=== PATIENT | female | born 1935 | race Caucasian/White ===

== ENCOUNTER 2017-04-02 18:03 | Observation (INO) | payer MEDICARE, OTHER ==
[2017-04-02] VITALS (9 sets, daily range): BP systolic 165–212; BP diastolic 72–105; PULSE 61–84; RESP 16–20; TEMP 98–99.1; O2SAT 96–99
[~2017-04-02] VITALS: Ht 165.1 cm; Wt 61.6 kg
[2017-04-02] MEDS ORDERED: ROSU10 PO (18:25)
[2017-04-02] MEDS ORDERED: GLIP5TAB8 PO (18:25)
[2017-04-02] MEDS ORDERED: METOPROLOL (18:25)
[2017-04-02] MEDS ORDERED: METF500T PO (18:25)
[2017-04-02] MEDS ORDERED: ASPI-516 CHEW (18:25)
[2017-04-02] MEDS ORDERED: SERT25TA83 PO (18:25)
[2017-04-02] MEDS ORDERED: TETANUS/DIPHTHERIA TOXOID ADULT 0.5 ML VIAL IM ONE (18:30)
[2017-04-02] MEDS ORDERED: SODIUM CHLORIDE 0.9% FLUSH 10 ML FLUSH IVF PRN ×2 (18:30)
--- NOTE | 2017-04-02 18:43 | PD ---
HPI Chief Complaint: Fall Time Seen by Provider: 18:21 Travel History International Travel<30 days: No Contact w/Intl Traveler<30days: No Traveled to known affect area: No History of Present Illness HPI 81 y/o female presents after she states she was going to the bathroom next thing she knows she was on the ground. She has pain to her right hand and has a cut above her right eye. She states she had this happen to her once before and she did not get evaluated for it. She states she thinks she blacked out. This episode was unwitnessed. She denies any other complaints and history is limited as patient had loss of consciousness during episode. PFSH Past Medical History Hx Anticoagulant Therapy: Yes Cardiovascular Problems: Yes High Cholesterol: Yes Diabetes: Yes Patient Takes Glucophage: Yes Hypertension: Yes Tetanus Vaccination: Unknown Dilation and Curettage (D&C): Yes Past Surgical History Cardiac Surgery: Yes Genitourinary Surgery: Yes Social History Alcohol Use: No Tobacco Use: No Substance Use: No Allergies-Medications (Allergen,Severity, Reaction): Coded Allergies: ciprofloxacin (Verified Allergy, Unknown, 04/02/17) verapamil (Verified Allergy, Unknown, 04/02/17) Reported Meds & Prescriptions Reported Meds & Active Scripts Active Reported Glipizide 5 Mg Tab 5 Mg PO DAILY Take 30 minutes before a meal Metformin (Metformin HCl) 500 Mg Tab 500 Mg PO BIDPC Aspirin 81 Mg Chew 81 Mg CHEW DAILY [Metoprolol] Crestor (Rosuvastatin Calcium) 10 Mg Tab 10 Mg PO DAILY Sertraline (Sertraline HCl) 25 Mg Tab 25 Mg PO DAILY Review of Systems Except as stated in HPI: all other systems reviewed are Neg Physical Exam Narrative GENERAL: Well-nourished, well-developed patient. SKIN: Warm and dry. Large ecchymosis noted to right breast HEAD: Normocephalic and laceration noted supraorbitally on the right EYES: No injection or drainage. ENT: No nasal drainage noted. NECK: Supple, trachea midline. No pain over midline neck CARDIOVASCULAR: Regular rate and rhythm RESPIRATORY: Breath sounds equal bilaterally at apices. No accessory muscle use. GASTROINTESTINAL: Abdomen soft, tender right upper quadrant, nondistended. EXTREMITIES: No edema.Pain with palpation of right hand with ecchymosis, no pain with other joints , neurovascularly intact, no lacerations over, compartments soft. BACK: Nontender without obvious deformity. NEUROLOGICAL: Awake and alert. Motor and sensory grossly within normal limits. Normal speech. Data Data Last Documented VS Vital Signs Date Time Temp Pulse Resp B/P (MAP) Pulse Ox O2 Delivery O2 Flow Rate FiO2 04/02/17 18:58 99.1 69 19 185/79 (114) 99 04/02/17 18:17 Room Air Orders Orders Basic Metabolic Panel (Bmp) (04/02/17 18:25) Complete Blood Count With Diff (04/02/17 18:25) Prothrombin Time / Inr (Pt) (04/02/17 18:25) Act Partial Throm Time (Ptt) (04/02/17 18:25) Type And Screen (04/02/17 18:) Chest, Single Ap (04/02/17 18:25) Pelvis, Ap Only (Routine) (04/02/17 18:25) Ct Brain W/O Iv Contrast(Rout) (04/02/17 18:25) Ct Cerv Spine W/O Contrast (04/02/17 18:25) Ct Abd/Pel W Iv Contrast(Rout) (04/02/17 18:25) Iv Access Insert/Monitor (04/02/17 18:25) Ecg Monitoring (04/02/17 18:25) Oximetry (04/02/17 18:25) Sodium Chloride 0.9% Flush (Ns Flush) (04/02/17 18:30) Wrist, Complete ([id number]) (04/02/17 ) Hand, Complete ([id number]) (04/02/17 ) Tetanus/Diphtheria Tox Adult (Tetanus/Di (04/02/17 18:30) Magnesium (Mg) (04/02/17 18:25) Ckmb (Isoenzyme) Profile (04/02/17 18:25) Troponin I (04/02/17 18:25) Urinalysis - C+S If Indicated (04/02/17 18:25) Sodium Chloride 0.9% Flush (Ns Flush) (04/02/17 18:30) Ct Pulmonary Angiogram (04/02/17 ) Labs Laboratory Tests Test 04/02/17 18:45 White Blood Count 7.2 TH/MM3 Red Blood Count 4.39 MIL/MM3 Hemoglobin 13.1 GM/DL Hematocrit 38.7 % Mean Corpuscular Volume 88.2 FL Mean Corpuscular Hemoglobin 29.7 PG Mean Corpuscular Hemoglobin Concent 33.7 % Red Cell Distribution Width 13.1 % Platelet Count 196 TH/MM3 Mean Platelet Volume 8.8 FL Neutrophils (%) (Auto) 70.8 % Lymphocytes (%) (Auto) 19.8 % Monocytes (%) (Auto) 7.1 % Eosinophils (%) (Auto) 1.7 % Basophils (%) (Auto) 0.6 % Neutrophils # (Auto) 5.1 TH/MM3 Lymphocytes # (Auto) 1.4 TH/MM3 Monocytes # (Auto) 0.5 TH/MM3 Eosinophils # (Auto) 0.1 TH/MM3 Basophils # (Auto) 0.0 TH/MM3 CBC Comment DIFF FINAL Differential Comment Prothrombin Time 10.7 SEC Prothromb Time International Ratio 1.0 RATIO Activated Partial Thromboplast Time 25.1 SEC MDM Medical Decision Making Medical Screen Exam Complete: Yes Emergency Medical Condition: Yes Medical Record Reviewed: Yes (past history confirmed) Differential Diagnosis Fracture, strain, bleeding, syncope Narrative Course Will check blood work, trauma imaging and she will likely need admission for syncope Physician Communication Physician Communication Oncoming physician to follow workup and admit Sandra Alvarado MD Apr 02, 2017 18:43
[2017-04-02 18:55] LABS: AUTOMATED NEUTROPHIL # 5.1 TH/MM3 (1.8-7.7); BASOPHIL % 0.6 % (0.0-2.0); EOSINOPHIL # 0.1 TH/MM3 (0-0.4); EOSINOPHIL % 1.7 % (0.0-4.0); HEMATOCRIT 38.7 % (35.0-46.0); HEMO FLAGS DIFF FINAL; LYMPH % 19.8 % (9.0-44.0); LYMPHOCYTE # 1.4 TH/MM3 (1.0-4.8); MEAN CELL VOLUME 88.2 FL (80.0-100.0); MEAN CORPUSCULAR HEMOGLOBIN 29.7 PG (27.0-34.0); MEAN CORPUSCULAR HGB CONC 33.7 % (32.0-36.0); MONO % 7.1 % (0.0-8.0); NEUT % 70.8 % (16.0-70.0); PLATELET COUNT 196 TH/MM3 (150-450); RED BLOOD COUNT 4.39 MIL/MM3 (4.00-5.30); RED CELL DISTRIBUTION WIDTH 13.1 % (11.6-17.2); WHITE BLOOD COUNT 7.2 TH/MM3 (4.0-11.0)
[2017-04-02 19:07] LABS: APTT (PATIENT) 25.1 SEC (24.3-30.1); PROTHROMBIN TIME - PATIENT 10.7 SEC (9.8-11.6)
[2017-04-02 19:18] LABS: ANION GAP 8 MEQ/L (5-15); BICARBONATE 24.3 MEQ/L (21.0-32.0); BLOOD UREA NITROGEN 19 MG/DL (7-18); CHLORIDE 107 MEQ/L (98-107); GLOMERULAR FILTRATION RATE 53 ML/MIN (>89); MAGNESIUM 1.6 MG/DL (1.5-2.5); POTASSIUM 3.5 MEQ/L (3.5-5.1); SODIUM (NA) 139 MEQ/L (136-145)
[2017-04-02 19:23] LABS: CREATINE KINASE 82 U/L (26-192)
--- NOTE | 2017-04-02 19:23 | PD ---
Physical Exam Date Seen by Provider: Apr 02, 2017 Time Seen by Provider: 19:22 Narrative Accepted in transfer of care from Dr. Alvarado Data Data Last Documented VS Vital Signs Date Time Temp Pulse Resp B/P (MAP) Pulse Ox O2 Delivery O2 Flow Rate FiO2 04/02/17 19:40 70 16 209/91 (130) 98 Room Air 04/02/17 18:58 99.1 Orders Orders Basic Metabolic Panel (Bmp) (04/02/17 18:25) Complete Blood Count With Diff (04/02/17 18:25) Prothrombin Time / Inr (Pt) (04/02/17 18:25) Act Partial Throm Time (Ptt) (04/02/17 18:25) Type And Screen (04/02/17 18:25) Chest, Single Ap (04/02/17 18:25) Pelvis, Ap Only (Routine) (04/02/17 18:25) Ct Brain W/O Iv Contrast(Rout) (04/02/17 18:25) Ct Cerv Spine W/O Contrast (04/02/17 18:25) Ct Abd/Pel W Iv Contrast(Rout) (04/02/17 18:25) Iv Access Insert/Monitor (04/02/17 18:25) Ecg Monitoring (04/02/17 18:25) Oximetry (04/02/17 18:25) Sodium Chloride 0.9% Flush (Ns Flush) (04/02/17 18:30) Wrist, Complete (Pon9uhi) (04/02/17 ) Hand, Complete (Boj9rdn) (04/02/17 ) Tetanus/Diphtheria Tox Adult (Tetanus/Di (04/02/17 18:30) Magnesium (Mg) (04/02/17 18:25) Ckmb (Isoenzyme) Profile (04/02/17 18:25) Troponin I (04/02/17 18:25) Urinalysis - C+S If Indicated (04/02/17 18:25) Sodium Chloride 0.9% Flush (Ns Flush) (04/02/17 18:30) Ct Pulmonary Angiogram (04/02/17 ) Ct Facial Bones W/O Iv Cont (04/02/17 ) Iohexol 350 Inj (Omnipaque 350 Inj) (04/02/17 20:26) Splint Or Brace Apply/Monitor (04/02/17 21:57) Admit Order (Ed Use Only) (04/02/17 ) Staff Command And Control Officer / Telemetry ERIK.[id number] (04/02/17 22:02) Diet 1999 Ada Cons Carb (04/03/17 Breakfast) Activity Oob With Assistance (04/02/17 22:02) Notify Dr: Other (04/02/17 22:02) Labs Laboratory Tests Test 04/02/17 18:45 04/02/17 19:42 White Blood Count 7.2 TH/MM3 Red Blood Count 4.39 MIL/MM3 Hemoglobin 13.1 GM/DL Hematocrit 38.7 % Mean Corpuscular Volume 88.2 FL Mean Corpuscular Hemoglobin 29.7 PG Mean Corpuscular Hemoglobin Concent 33.7 % Red Cell Distribution Width 13.1 % Platelet Count 196 TH/MM3 Mean Platelet Volume 8.8 FL Neutrophils (%) (Auto) 70.8 % Lymphocytes (%) (Auto) 19.8 % Monocytes (%) (Auto) 7.1 % Eosinophils (%) (Auto) 1.7 % Basophils (%) (Auto) 0.6 % Neutrophils # (Auto) 5.1 TH/MM3 Lymphocytes # (Auto) 1.4 TH/MM3 Monocytes # (Auto) 0.5 TH/MM3 Eosinophils # (Auto) 0.1 TH/MM3 Basophils # (Auto) 0.0 TH/MM3 CBC Comment DIFF FINAL Differential Comment Prothrombin Time 10.7 SEC Prothromb Time International Ratio 1.0 RATIO Activated Partial Thromboplast Time 25.1 SEC Blood Urea Nitrogen 19 MG/DL Creatinine 1.00 MG/DL Random Glucose 213 MG/DL Calcium Level 8.6 MG/DL Magnesium Level 1.6 MG/DL Sodium Level 139 MEQ/L Potassium Level 3.5 MEQ/L Chloride Level 107 MEQ/L Carbon Dioxide Level 24.3 MEQ/L Anion Gap 8 MEQ/L Estimat Glomerular Filtration Rate 53 ML/MIN Total Creatine Kinase 82 U/L Troponin I LESS THAN 0.02 NG/ML Urine Color LIGHT-YELLOW Urine Turbidity CLEAR Urine pH 6.5 Urine Specific [place] 1.009 Urine Protein NEG mg/dL Urine Glucose (UA) 150 mg/dL Urine Ketones NEG mg/dL Urine Occult Blood NEG Urine Nitrite NEG Urine Bilirubin NEG Urine Urobilinogen LESS THAN 2.0 MG/DL Urine Leukocyte Esterase SMALL Urine RBC 1 /hpf Urine WBC 6 /hpf Urine Squamous Epithelial Cells 1 /hpf Urine Bacteria RARE /hpf Microscopic Urinalysis Comment CULT NOT INDICATED MDM Medical Record Reviewed: Yes Supervised Visit with RYANNE: No Interpretation(s) Last Impressions Pelvis X-Ray 04/02/171824 Signed Impressions: Service Date/Time: March 19:00 - CONCLUSION: Normal examination for a patient of this age. Lawson Michael MD Head CT 04/02/171824 Signed Impressions: Service Date/Time: March 20:10 - CONCLUSION: 1. Right periorbital soft tissue swelling. No acute intracranial abnormalities. Lawson Michael MD Chest X-Ray 04/02/171824 Signed Impressions: Service Date/Time: March 18:57 - CONCLUSION: 1. No active disease. No effusion or pneumothorax. Lawson Michael MD Cervical Spine CT 04/02/171824 Signed Impressions: Service Date/Time: March 20:13 - CONCLUSION: 1. No acute fracture. Moderate to severe degenerative disc disease in the lower cervical spine. Lawson Michael MD Abdomen/Pelvis CT 04/02/171824 Signed Impressions: Service Date/Time: March 20:18 - CONCLUSION: Negative for acute traumatic injury within the abdomen or pelvis. Mild smooth thickening of the bladder wall on the right side of unknown etiology. Lawson Michael MD Wrist X-Ray 04/02/17 Signed Impressions: Service Date/Time: March 19:03 - CONCLUSION: 1. No acute fracture. Moderate osteoarthritis. Lawson Michael MD Maxillofacial CT 04/02/17 Signed Impressions: Service Date/Time: March 20:10 - CONCLUSION: 1. Right periorbital soft tissue swelling. Globes intact. Lawson Michael MD Hand X-Ray 04/02/17 Signed Impressions: Service Date/Time: March 19:02 - CONCLUSION: 1. Fracture of proximal phalanx right fifth finger. No dislocation. 2. Diffuse osteopenia. Moderate osteoarthritis. Lawson Michael MD CT Angiography 11/23/17 0000 Signed Impressions: Service Date/Time: March 20:18 - CONCLUSION: 1. Minimal basilar atelectasis in the lungs. No effusion or pneumothorax. Negative for pulmonary embolus. Lawson Michael MD CBC & BMP Diagram 04/02/17 18:45 Calcium Level 8.6, Magnesium Level 1.6 Vital Signs Date Time Temp Pulse Resp B/P (MAP) Pulse Ox O2 Delivery O2 Flow Rate FiO2 04/02/17 19:40 70 16 209/91 (130) 98 Room Air 04/02/17 19:38 63 16 191/105 (133) 98 Room Air 04/02/17 18:58 99.1 69 19 185/79 (114) 99 04/02/17 18:17 75 20 99 Room Air 04/02/17 18:17 99.1 75 20 185/79 (114) 99 Room Air 04/02/17 18:11 99.1 84 20 185/79 (114) 99 04/02/17 18:07 98.1 77 18 212/95 (134) 98 Room Air Differential Diagnosis Accepted in transfer of care from Dr. Alvarado; please refer to her dictation Narrative Course Accepted in transfer of care from Dr. Alvarado; follow-up of pending CT brain noncontrast CTA pulmonary angiogram and CT abdomen and pelvis as well as follow- up repair of right supraorbital laceration with plan to admit due to syncopal episode today and report of syncopal episode a few weeks ago while in [place] without workup at that time. Imaging studies resulted with no acute abnormality except for right hand x-ray shows a proximal nondisplaced fracture of the fifth digit; ulnar gutter splint applied due to strained wrist as well; 1.5 cm laceration overlying the right eyebrow is closed by nurse practitioner. Soft tissue swelling is noted of the upper and lower right eyelids but no subconjunctival hemorrhage pupil round reactive to light and no visual disturbance of the right eye according to the patient. Patient is aware plan for observation admission for syncope. Physician Communication Physician Communication discussed with Dr Gonzalez --OBS Diagnosis Primary Impression: Syncope Qualified Codes: R55 - Syncope and collapse Additional Impression: Finger fracture, right Qualified Codes: S62.646A - Nondisplaced fracture of proximal phalanx of right little finger, initial encounter for closed fracture Humaira Mosqueda MD Apr 02, 2017 19:23
--- NOTE | 2017-04-02 19:26 | RADRPT ---
EXAM DATE/TIME: 04/02/2017 19:00 [facility] COMPARISON: No previous studies available for comparison. INDICATIONS : Trauma/ Fall MEDICAL HISTORY : None. SURGICAL HISTORY : None. ENCOUNTER: Initial ACUITY: 1 day PAIN SCORE: 2/10 LOCATION: pelvis FINDINGS: A single frontal view of the pelvis demonstrates no evidence of fracture. The bony pelvic ring is in tact. Bony mineralization is normal. The soft tissues are intact. CONCLUSION: Normal examination for a patient of this age. Lawson Michael MD on April 02, 2017 at 19:25 Board Certified Radiologist. This report was verified electronically.
--- NOTE | 2017-04-02 19:26 | RADRPT ---
EXAM DATE/TIME: 04/02/2017 18:57 [facility] COMPARISON: No previous studies available for comparison. INDICATIONS : Trauma/ Fall MEDICAL HISTORY : None. SURGICAL HISTORY : None. ENCOUNTER: Initial ACUITY: 1 day PAIN SCORE: 0/10 LOCATION: Bilateral chest FINDINGS: A single view of the chest demonstrates the lungs to be symmetrically aerated without evidence of mas s, infiltrate or effusion. The cardiomediastinal contours are unremarkable. Osseous structures are intact. CONCLUSION: 1. No active disease. No effusion or pneumothorax. Lawson Michael MD on April 02, 2017 at 19:23 Board Certified Radiologist. This report was verified electronically.
--- NOTE | 2017-04-02 19:59 | RADRPT ---
EXAM DATE/TIME: 04/02/2017 19:02 [facility] COMPARISON: No previous studies available for comparison. INDICATIONS : Trauma/Fall MEDICAL HISTORY : None. SURGICAL HISTORY : None. ENCOUNTER: Initial ACUITY: 1 day PAIN SCORE: 2/10 LOCATION: Right Hand FINDINGS: There is an intra-articular fracture through the proximal portion proximal phalanx right fifth finger . No dislocation. Bones are osteopenic. Moderate osteoarthritis throughout the right wrist and hand. CONCLUSION: 1. Fracture of proximal phalanx right fifth finger. No dislocation. 2. Diffuse osteopenia. Moderate osteoarthritis. Lawson Michael MD on April 02, 2017 at 19:56 Board Certified Radiologist. This report was verified electronically.
--- NOTE | 2017-04-02 20:00 | RADRPT ---
EXAM DATE/TIME: 04/02/2017 19:03 [facility] COMPARISON: No previous studies available for comparison. INDICATIONS : Trauma/ Fall MEDICAL HISTORY : None. SURGICAL HISTORY : None. ENCOUNTER: Initial ACUITY: 1 day PAIN SCORE: 2/10 LOCATION: Right wrist FINDINGS: Three view examination of the right wrist demonstrates no soft tissue swelling, dislocation, or fract ure. The carpal bones are in normal alignment. Moderate osteoarthritis. Bony mineralization is caleb l. CONCLUSION: 1. No acute fracture. Moderate osteoarthritis. Lawson Michael MD on April 02, 2017 at 19:58 Board Certified Radiologist. This report was verified electronically.
[2017-04-02 20:01] LABS: BACTERIA, URINE RARE /hpf; BLOOD, URINE NEG (NEG); COMMENT (UR) CULT NOT INDICATED; CULTURE IF INDICATED CULT NOT INDICATED; GLUCOSE,URINE 150 mg/dL (NEG); KETONE, URINE NEG (NEG); NITRITE,URINE NEG (NEG); PH, URINE 6.5 (5.0-8.5); SQUAMOUS EPITHELIAL CELL URINE 1 /hpf (0-5); URINE COLOR LIGHT-YELLOW (YELLW/STRAW)
[2017-04-02] MEDS ORDERED: IOHEXOL 350 MG/ML 10 ML VIAL (for RAD DIAG) IVCONTRAST ONE (20:26)
--- NOTE | 2017-04-02 20:34 | RADRPT ---
EXAM DATE/TIME: 04/02/2017 20:10 [facility] COMPARISON: No previous studies available for comparison. INDICATIONS : Trauma; fall. RADIATION DOSE: 56.35 CTDIvol (mGy) MEDICAL HISTORY : Hypertension. SURGICAL HISTORY : None. ENCOUNTER: Initial ACUITY: 1 day PAIN SCALE: 5/10 LOCATION: cranial TECHNIQUE: Multiple contiguous axial images were obtained of the head. Using automated exposure control and adj ustment of the mA and/or kV according to patient size, radiation dose was kept as low as reasonably a chievable to obtain optimal diagnostic quality images. DICOM format image data is available electro nically for review and comparison. FINDINGS: No acute intracranial hemorrhage, mass or shift. No hydrocephalus. There is right periorbital soft ti ssue swelling. Globes intact. No recent infarct. CONCLUSION: 1. Right periorbital soft tissue swelling. No acute intracranial abnormalities. Lawson Michael MD on April 02, 2017 at 20:31 Board Certified Radiologist. This report was verified electronically.
--- NOTE | 2017-04-02 20:36 | RADRPT ---
EXAM DATE/TIME: 04/02/2017 20:13 [facility] COMPARISON: No previous studies available for comparison. INDICATIONS : Trauma; fall. RADIATION DOSE: 26.35 CTDIvol (mGy) MEDICAL HISTORY : Hypertension. SURGICAL HISTORY : None. ENCOUNTER: Initial ACUITY: 1 day PAIN SCALE: 5/10 LOCATION: Bilateral neck TECHNIQUE: Volumetric scanning of the cervical spine was performed. Multiplanar reconstructions in the sagittal, coronal and oblique axial planes were performed. Using automated exposure control and adjustment o f the mA and/or kV according to patient size, radiation dose was kept as low as reasonably achievable to obtain optimal diagnostic quality images. DICOM format image data is available electronically f or review and comparison. FINDINGS: There is moderate severe degenerative disc disease in lower cervical spine. No acute fracture or spon dylolisthesis. No significant central canal stenosis. No prevertebral soft tissue swelling. CONCLUSION: 1. No acute fracture. Moderate to severe degenerative disc disease in the lower cervical spine. Lawson Michael MD on April 02, 2017 at 20:33 Board Certified Radiologist. This report was verified electronically.
--- NOTE | 2017-04-02 20:48 | RADRPT ---
EXAM DATE/TIME: 04/02/2017 20:18 [facility] COMPARISON: No previous studies available for comparison. INDICATIONS : Trauma; fall. IV CONTRAST: 100 cc Omnipaque 350 (iohexol) IV ; Cumulative dose for multiple exams. ORAL CONTRAST: No oral contrast ingested. RADIATION DOSE: 9.96 CTDIvol (mGy) ; Combined studies - Thorax/Abdomen/Pelvis MEDICAL HISTORY : Hypertension. SURGICAL HISTORY : None. ENCOUNTER: Initial ACUITY: 1 day PAIN SCALE: 5/10 LOCATION: Bilateral chest TECHNIQUE: Volumetric scanning of the abdomen and pelvis was performed. Using automated exposure control and ad justment of the mA and/or kV according to patient size, radiation dose was kept as low as reasonably achievable to obtain optimal diagnostic quality images. DICOM format image data is available electro nically for review and comparison. FINDINGS: Lung bases demonstrate minimal scarring. Mild fatty liver. Spleen, adrenals, kidneys and pancreas unr emarkable. No calcified gallstones or biliary ductal dilatation. No free fluid. No bowel obstruction. No adenopathy. Mild nonspecific thickening of the bladder wall o n the right side. CONCLUSION: Negative for acute traumatic injury within the abdomen or pelvis. Mild smooth thickening of the bladd er wall on the right side of unknown etiology. Lawson Michael MD on April 02, 2017 at 20:43 Board Certified Radiologist. This report was verified electronically.
--- NOTE | 2017-04-02 20:53 | RADRPT ---
EXAM DATE/TIME: 04/02/2017 20:18 [facility] COMPARISON: No previous studies available for comparison. INDICATIONS : Trauma; fall. IV CONTRAST: 100 cc Omnipaque 350 (iohexol) IV ; Cumulative dose for multiple exams. RADIATION DOSE: 5.1 CTDIvol (mGy) MEDICAL HISTORY : Hypertension. SURGICAL HISTORY : None. ENCOUNTER: Initial ACUITY: 1 day PAIN SCALE: 5/10 LOCATION: Bilateral abdomen TECHNIQUE: Volumetric scanning of the chest was performed using a pulmonary embolism protocol MIP images were re constructed. Using automated exposure control and adjustment of the mA and/or kV according to patien t size, radiation dose was kept as low as reasonably achievable to obtain optimal diagnostic quality images. DICOM format image data is available electronically for review and comparison. Follow-up recommendations for detected pulmonary nodules are based at a minimum on nodule size and pa tient risk factors according to Fleischner Society Guidelines. FINDINGS: PULMONARY ARTERIES: No filling defects are seen in the pulmonary arteries through the segmental level. LUNGS: There is no consolidation or pneumothorax . No concerning pulmonary nodule is visualized. Minimal ba silar atelectasis. PLEURAE: There is no pleural thickening or pleural effusion. MEDIASTINUM: There is good visualization of the great vessels of the middle mediastinum. No evidence of mediastin al or hilar adenopathy/mass. MUSCULOSKELETAL: Within normal limits for patient age. MISCELLANEOUS: The visualized upper abdominal organs demonstrate no acute abnormality. CONCLUSION: 1. Minimal basilar atelectasis in the lungs. No effusion or pneumothorax. Negative for pulmonary embo lon. Lawson Michael MD on April 02, 2017 at 20:46 Board Certified Radiologist. This report was verified electronically.
--- NOTE | 2017-04-02 20:56 | RADRPT ---
EXAM DATE/TIME: 04/02/2017 20:10 [facility] COMPARISON: No previous studies available for comparison. INDICATIONS : Trauma; fall. RADIATION DOSE: 27.85 CTDIvol (mGy) MEDICAL HISTORY : Hypertension. SURGICAL HISTORY : None. ENCOUNTER: Initial ACUITY: 1 day PAIN SCORE: 5/10 LOCATION: cranial TECHNIQUE: Volumetric scanning of the facial bones was performed. Using automated exposure control and adjustme nt of the mA and/or kV according to patient size, radiation dose was kept as low as reasonably achiev able to obtain optimal diagnostic quality images. DICOM format image data is available electronicall y for review and comparison. FINDINGS: There is right periorbital soft tissue swelling. No acute bony abnormality. Visualized paranasal sinu ses are clear. Globes are intact. CONCLUSION: 1. Right periorbital soft tissue swelling. Globes intact. Lawson Michael MD on April 02, 2017 at 20:51 Board Certified Radiologist. This report was verified electronically.
--- NOTE | 2017-04-02 22:16 | PD ---
Physical Exam Date Seen by Provider: Apr 02, 2017 Time Seen by Provider: 22:15 Narrative For full history and physical examination please see previous provider's note. I was asked a pair laceration to patient's right eyebrow. Data Data Last Documented VS Vital Signs Date Time Temp Pulse Resp B/P (MAP) Pulse Ox O2 Delivery O2 Flow Rate FiO2 04/02/17 19:40 70 16 209/91 (130) 98 Room Air 04/02/17 18:58 99.1 Orders Orders Basic Metabolic Panel (Bmp) (04/02/17 18:25) Complete Blood Count With Diff (04/02/17 18:25) Prothrombin Time / Inr (Pt) (04/02/17 18:25) Act Partial Throm Time (Ptt) (04/02/17 18:25) Type And Screen (04/02/17 18:25) Chest, Single Ap (04/02/17 18:25) Pelvis, Ap Only (Routine) (04/02/17 18:25) Ct Brain W/O Iv Contrast(Rout) (04/02/17 18:25) Ct Cerv Spine W/O Contrast (04/02/17 18:25) Ct Abd/Pel W Iv Contrast(Rout) (04/02/17 18:25) Iv Access Insert/Monitor (04/02/17 18:25) Ecg Monitoring (04/02/17 18:25) Oximetry (04/02/17 18:25) Sodium Chloride 0.9% Flush (Ns Flush) (04/02/17 18:30) Wrist, Complete ([id number]) (04/02/17 ) Hand, Complete ([id number]) (04/02/17 ) Tetanus/Diphtheria Tox Adult (Tetanus/Di (04/02/17 18:30) Magnesium (Mg) (04/02/17 18:25) Ckmb (Isoenzyme) Profile (04/02/17 18:25) Troponin I (04/02/17 18:25) Urinalysis - C+S If Indicated (04/02/17 18:25) Sodium Chloride 0.9% Flush (Ns Flush) (04/02/17 18:30) Ct Pulmonary Angiogram (04/02/17 ) Ct Facial Bones W/O Iv Cont (04/02/17 ) Iohexol 350 Inj (Omnipaque 350 Inj) (04/02/17 20:26) Splint Or Brace Apply/Monitor (04/02/17 21:57) Admit Order (Ed Use Only) (04/02/17 ) Medical Stenographer / Telemetry [id number] (04/02/17 22:02) Diet 1999 Ada Cons Carb (04/03/17 Breakfast) Activity Oob With Assistance (04/02/17 22:02) Notify Dr: Other (04/02/17 22:02) Labs Laboratory Tests Test 04/02/17 18:45 04/02/17 19:42 White Blood Count 7.2 TH/MM3 Red Blood Count 4.39 MIL/MM3 Hemoglobin 13.1 GM/DL Hematocrit 38.7 % Mean Corpuscular Volume 88.2 FL Mean Corpuscular Hemoglobin 29.7 PG Mean Corpuscular Hemoglobin Concent 33.7 % Red Cell Distribution Width 13.1 % Platelet Count 196 TH/MM3 Mean Platelet Volume 8.8 FL Neutrophils (%) (Auto) 70.8 % Lymphocytes (%) (Auto) 19.8 % Monocytes (%) (Auto) 7.1 % Eosinophils (%) (Auto) 1.7 % Basophils (%) (Auto) 0.6 % Neutrophils # (Auto) 5.1 TH/MM3 Lymphocytes # (Auto) 1.4 TH/MM3 Monocytes # (Auto) 0.5 TH/MM3 Eosinophils # (Auto) 0.1 TH/MM3 Basophils # (Auto) 0.0 TH/MM3 CBC Comment DIFF FINAL Differential Comment Prothrombin Time 10.7 SEC Prothromb Time International Ratio 1.0 RATIO Activated Partial Thromboplast Time 25.1 SEC Blood Urea Nitrogen 19 MG/DL Creatinine 1.00 MG/DL Random Glucose 213 MG/DL Calcium Level 8.6 MG/DL Magnesium Level 1.6 MG/DL Sodium Level 139 MEQ/L Potassium Level 3.5 MEQ/L Chloride Level 107 MEQ/L Carbon Dioxide Level 24.3 MEQ/L Anion Gap 8 MEQ/L Estimat Glomerular Filtration Rate 53 ML/MIN Total Creatine Kinase 82 U/L Troponin I LESS THAN 0.02 NG/ML Urine Color LIGHT-YELLOW Urine Turbidity CLEAR Urine pH 6.5 Urine Specific [place] 1.009 Urine Protein NEG mg/dL Urine Glucose (UA) 150 mg/dL Urine Ketones NEG mg/dL Urine Occult Blood NEG Urine Nitrite NEG Urine Bilirubin NEG Urine Urobilinogen LESS THAN 2.0 MG/DL Urine Leukocyte Esterase SMALL Urine RBC 1 /hpf Urine WBC 6 /hpf Urine Squamous Epithelial Cells 1 /hpf Urine Bacteria RARE /hpf Microscopic Urinalysis Comment CULT NOT INDICATED MDM Supervised Visit with RYANNE: Yes Procedures Procedure Narrative LACERATION LOCATION: Right eyebrow LENGTH: 1.5cm NUMBER OF STITCHES/SANJIV: 6 stitches REPAIR: The area of the laceration was prepped with Betadine and sterilely draped. The laceration was infiltrated with 1% lidocaine with epi. The wound was copiously irrigated and explored without evidence of foreign body, tendon injury or neurovascular injury. The wound was closed using 5-0 Prolene. This was a 1 layer repair. A sterile dressing was applied. The patient was advised to keep the dressing clean and dry. Patient tolerated the procedure well. Diagnosis Primary Impression: Syncope Qualified Codes: R55 - Syncope and collapse Additional Impression: Finger fracture, right Qualified Codes: S62.646A - Nondisplaced fracture of proximal phalanx of right little finger, initial encounter for closed fracture Eryn Escobedo [facility] Apr 02, 2017 22:16
[2017-04-02] MEDS ORDERED: OMEP40CA2 PO (22:38)
[2017-04-02] MEDS ORDERED: AMIO0.1T PO (22:38)
[2017-04-02] MEDS ORDERED: VITA1000 PO (22:38)
[2017-04-02] MEDS ORDERED: PROP20TA3 PO (22:38)
[2017-04-02] MEDS ORDERED: ARMO60TA PO (22:38)
[2017-04-02] MEDS ORDERED: FENO2.5C PO (22:38)
[2017-04-02] MEDS ORDERED: SODIUM CHLORIDE 0.9% FLUSH 10 ML FLUSH IV FLUSH PRN (23:30)
--- NOTE | 2017-04-02 23:43 | HHI.HP ---
[facility] Primary Care Physician Unknown Admission Diagnosis syncope, minor CHI, right fifth finger fracture Diagnoses: Travel History International Travel<30 Days: No Contact w/Intl Traveler <30 Da: No Traveled to Known Affected Are: No History of Present Illness 81-year-old female with past medical history significant for hypertension, hyperlipidemia, hypothyroidism and type 2 diabetes mellitus presents after suffering a syncopal episode. The patient states she was using a public restroom and upon standing lost consciousness and fell. She does not remember the fall. She remembers waking up on the bathroom floor with a laceration to her forehead. The patient had a similar episode approximately one month ago where she fainted after getting off the bus. She lives in [place] and has not had any workup done for her previous syncopal episode. The patient has significant ecchymosis surrounding her right eye and a 2 cm laceration status post repair above her right eyebrow. Imaging done within the emergency department was normal with the exception of a fracture of the proximal phalanx right fifth finger without dislocation. Head CT significant for periorbital soft tissue swelling with no acute intracranial abnormalities. Patient denies any chest pain/shortness of breath. She denies abdominal pain/nausea/vomiting. Review of Systems Denies fever or chills Denies blurry vision, otorrhea, rhinorrhea Denies sore throat and cough No chest pain, palpitations, shortness of breath No abdominal pain Denies constipation/diarrhea/nausea/vomiting Denies muscle pain/weakness No rashes Past Family Social History Past Medical History History of atrial fibrillation status post ablation in 2009 Type 2 diabetes mellitus Hypertension Hyperlipidemia Hypothyroidism Past Surgical History Right-sided lithotripsy, left stone retrieval Tonsillectomy Allergies: Coded Allergies: ciprofloxacin (Verified Allergy, Unknown, 04/02/17) verapamil (Verified Allergy, Unknown, 04/02/17) Family History Brother and sister with diabetes mellitus. Mother from pancreatic cancer. Father from bladder cancer. Social History Denies alcohol, tobacco and illicit drugs. Physical Exam Vital Signs Vital Signs Date Time Temp Pulse Resp B/P (MAP) Pulse Ox O2 Delivery O2 Flow Rate FiO2 11/23/17 23:04 64 16 165/74 (104) 96 Room Air 04/02/17 22:56 64 16 170/78 (108) 96 Room Air 04/02/17 19:40 70 16 209/91 (130) 98 Room Air 04/02/17 19:38 63 16 191/105 (133) 98 Room Air 04/02/17 18:58 99.1 69 19 185/79 (114) 99 04/02/17 18:17 75 20 99 Room Air 04/02/17 18:17 99.1 75 20 185/79 (114) 99 Room Air 04/02/17 18:11 99.1 84 20 185/79 (114) 99 04/02/17 18:07 98.1 77 18 212/95 (134) 98 Room Air Physical Exam GENERAL: Elderly female lying in bed SKIN: Right eye with significant soft tissue swelling and surrounding ecchymoses. 2 cm repaired laceration above the right eyebrow. HEAD: . Normocephalic. No temporal or scalp tenderness. EYES: Pupils equal round and reactive. Extraocular motions intact. No scleral icterus. No injection or drainage. ENT: Nose without bleeding, purulent drainage or septal hematoma. Throat without erythema, tonsillar hypertrophy or exudate. Uvula midline. Airway patent. NECK: Trachea midline. No JVD or lymphadenopathy. Supple, nontender, no meningeal signs. CARDIOVASCULAR: Regular rate and rhythm without murmurs, gallops, or rubs. RESPIRATORY: Clear to auscultation. Breath sounds equal bilaterally. No wheezes , rales, or rhonchi. GASTROINTESTINAL: Abdomen soft, non-tender, nondistended. No hepato-splenomegaly , or palpable masses. No guarding. MUSCULOSKELETAL: Extremities without clubbing, cyanosis, or edema. No joint tenderness, effusion, or edema noted. No calf tenderness. Negative Homans sign bilaterally. NEUROLOGICAL: Awake and alert. Cranial nerves II through XII intact. Motor and sensory grossly within normal limits. Normal speech. Laboratory Laboratory Tests Test 04/02/17 18:45 04/02/17 19:42 White Blood Count 7.2 Red Blood Count 4.39 Hemoglobin 13.1 Hematocrit 38.7 Mean Corpuscular Volume 88.2 Mean Corpuscular Hemoglobin 29.7 Mean Corpuscular Hemoglobin Concent 33.7 Red Cell Distribution Width 13.1 Platelet Count 196 Mean Platelet Volume 8.8 Neutrophils (%) (Auto) 70.8 Lymphocytes (%) (Auto) 19.8 Monocytes (%) (Auto) 7.1 Eosinophils (%) (Auto) 1.7 Basophils (%) (Auto) 0.6 Neutrophils # (Auto) 5.1 Lymphocytes # (Auto) 1.4 Monocytes # (Auto) 0.5 Eosinophils # (Auto) 0.1 Basophils # (Auto) 0.0 CBC Comment DIFF FINAL Differential Comment Prothrombin Time 10.7 Prothromb Time International Ratio 1.0 Activated Partial Thromboplast Time 25.1 Blood Urea Nitrogen 19 Creatinine 1.00 Random Glucose 213 Calcium Level 8.6 Magnesium Level 1.6 Sodium Level 139 Potassium Level 3.5 Chloride Level 107 Carbon Dioxide Level 24.3 Anion Gap 8 Estimat Glomerular Filtration Rate 53 Total Creatine Kinase 82 Troponin I LESS THAN 0.02 Urine Color LIGHT-YELLOW Urine Turbidity CLEAR Urine pH 6.5 Urine Specific [place] 1.009 Urine Protein NEG Urine Glucose (UA) 150 Urine Ketones NEG Urine Occult Blood NEG Urine Nitrite NEG Urine Bilirubin NEG Urine Urobilinogen LESS THAN 2.0 Urine Leukocyte Esterase SMALL Urine RBC 1 Urine WBC 6 Urine Squamous Epithelial Cells 1 Urine Bacteria RARE Microscopic Urinalysis Comment CULT NOT INDICATED Result Diagram: 04/02/17184404/02/171844 Caprini VTE Risk Assessment Caprini VTE Risk Assessment: Mod/High Risk (score >= 2) Caprini Risk Assessment Model Point Value = 1 Point Value = 2 Point Value = 3 Point Value = 5 Age 41-60 Minor surgery BMI > 25 kg/m2 Swollen legs Varicose veins or History of unexplained or recurrent spontaneous Oral contraceptives or hormone replacement Sepsis (< 1 month) Serious lung disease, including pneumonia (< 1 month) Abnormal pulmonary function Acute myocardial infarction Congestive heart failure (< 1 month) History of inflammatory bowel disease Medical patient at bed rest Age 61-74 Arthroscopic surgery Major open surgery (> 45 min) Laparoscopic surgery (> 45 min) Malignancy Confined to bed (> 72 hours) Immobilizing plaster cast Central venous access Age >= 75 History of VTE Family history of VTE Factor V Leiden Prothrombin [id number] Lupus anticoagulant Anticardiolipin antibodies Elevated serum homocysteine Heparin-induced thrombocytopenia Other congenital or acquired thrombophilia Stroke (< 1 month) Elective arthroplasty Hip, pelvis, or leg fracture Acute spinal cord injury (< 1 month) Prophylaxis Regimen Total Risk Factor Score Risk Level Prophylaxis Regimen 0-1 Low Early ambulation 2 Moderate Order ONE of the following: *Sequential Compression Device (SCD) *Heparin 5000 units SQ BID 3-4 Higher Order ONE of the following medications: *Heparin 5000 units SQ TID *Enoxaparin/Lovenox 40 mg SQ daily (WT < 150 kg, CrCl > 30 mL/min) *Enoxaparin/Lovenox 30 mg SQ daily (WT < 150 kg, CrCl > 10-29 mL/min) *Enoxaparin/Lovenox 30 mg SQ BID (WT < 150 kg, CrCl > 30 mL/min) AND/OR *Sequential Compression Device (SCD) 5 or more Highest Order ONE of the following medications: *Heparin 5000 units SQ TID (Preferred with Epidurals) *Enoxaparin/Lovenox 40 mg SQ daily (WT < 150 kg, CrCl > 30 mL/min) *Enoxaparin/Lovenox 30 mg SQ daily (WT < 150 kg, CrCl > 10-29 mL/min) *Enoxaparin/Lovenox 30 mg SQ BID (WT < 150 kg, CrCl > 30 mL/min) AND *Sequential Compression Device (SCD) Assessment and Plan Assessment and Plan 81-year-old female with past medical history significant for hypertension, hyperlipidemia, type 2 diabetes mellitus and hypothyroidism presents following her second syncopal event in 1 month. 1. Syncope Workup pending including echo, carotid ultrasound, ACS rule out If negative, anticipate discharge tomorrow with close follow-up with PCP 2. Diabetes mellitus Holding home metformin SSI 3. Hypertension/hyperlipidemia/hypothyroidism Continue home medications TSH pending [facility] Heart healthy diet Electrolytes: monitor and replete prn Heparin Patricia Gonzalez MD Apr 02, 2017 23:43
[2017-04-03] VITALS (9 sets, daily range): BP systolic 137–192; BP diastolic 64–82; PULSE 60–77; RESP 16–20; TEMP 96.2–99; O2SAT 94–98
[2017-04-03] MEDS ORDERED: MORPHINE SULFATE 4 MG/ML INJ IV PUSH PRN (00:45)
[2017-04-03] MEDS ORDERED: ACETAMINOPHEN 325 MG TAB PO PRN (00:45)
[2017-04-03] MEDS: HEPARIN SODIUM - SQ 10,000 UNITS/ML VIAL SQ SCH ×3 (01:14→22:51)
[2017-04-03 02:56] LABS: AUTOMATED NEUTROPHIL # 5.1 TH/MM3 (1.8-7.7); BASOPHIL % 0.6 % (0.0-2.0); EOSINOPHIL # 0.1 TH/MM3 (0-0.4); EOSINOPHIL % 1.7 % (0.0-4.0); HEMATOCRIT 35.8 % (35.0-46.0); HEMO FLAGS DIFF FINAL; LYMPH % 24.4 % (9.0-44.0); LYMPHOCYTE # 1.9 TH/MM3 (1.0-4.8); MEAN CELL VOLUME 87.2 FL (80.0-100.0); MEAN CORPUSCULAR HEMOGLOBIN 29.3 PG (27.0-34.0); MEAN CORPUSCULAR HGB CONC 33.6 % (32.0-36.0); MONO % 7.7 % (0.0-8.0); NEUT % 65.6 % (16.0-70.0); PLATELET COUNT 186 TH/MM3 (150-450); RED BLOOD COUNT 4.11 MIL/MM3 (4.00-5.30); RED CELL DISTRIBUTION WIDTH 13.1 % (11.6-17.2); WHITE BLOOD COUNT 7.8 TH/MM3 (4.0-11.0)
[2017-04-03] MEDS ORDERED: METOPROLOL TARTRATE 25 MG TAB PO ONE (03:15)
[2017-04-03 03:17] LABS: CREATINE KINASE 100 U/L (26-192)
[2017-04-03 03:23] LABS: BICARBONATE 27.4 MEQ/L (21.0-32.0); POTASSIUM 3.4 MEQ/L (3.5-5.1)
[2017-04-03] MEDS: AMIODARONE 200 MG TAB PO SCH (08:25)
[2017-04-03] MEDS: METOPROLOL TARTRATE 25 MG TAB PO SCH ×2 (08:25→21:00)
[2017-04-03] MEDS: SODIUM CHLORIDE 0.9% FLUSH 10 ML FLUSH IV FLUSH SCH ×2 (08:26→21:00)
[2017-04-03] MEDS: ATORVASTATIN 20 MG TAB PO SCH (08:56)
[2017-04-03] MEDS: THYROID 60 MG TAB PO SCH (08:56)
[2017-04-03] MEDS: SERTRALINE HCL 50 MG TAB PO SCH (08:56)
[2017-04-03] MEDS: ASPIRIN 81 MG CHEW TAB CHEW SCH (08:56)
[2017-04-03] MEDS: PANTOPRAZOLE SOD 40 MG DELAYED RELEASE TAB PO SCH (08:56)
[2017-04-03] MEDS: FENOFIBRATE 48 MG TAB PO SCH (08:56)
[2017-04-03 09:00] LABS: CREATINE KINASE 87 U/L (26-192)
[2017-04-03] MEDS ORDERED: PROPRANOLOL HCL 20 MG TAB PO SCH (09:00)
--- NOTE | 2017-04-03 09:01 | RADRPT ---
EXAM DATE/TIME: 04/03/2017 08:17 [place] COMPARISON: No previous studies available for comparison. INDICATIONS : Syncope. MEDICAL HISTORY : Hypertension. Thyroid disease. Atrial fibrillation. Diabetes. Anticoagulant therapy, Heparin. SURGICAL HISTORY : Dilation and curettage. ENCOUNTER: Initial ACUITY: 1 day PAIN SCORE: 0/10 LOCATION: Bilateral neck PEAK SYSTOLIC VELOCITIES (cm/sec): ICA/CCA RATIO: Right: 1.2 Left: 0.9 ICA: Right: 78 Left: 91 CCA: Right: 64 Left: 99 ECA: Right: 99 Left: 94 VERTEBRAL: Right: 62 antegrade Left: 42 antegrade Elevated flow velocities and ICA/CCA ratios have been found to correlate with increased degrees of vessel stenosis, calculated as percentage of diameter relative to a normal segment of distal ICA/CCA FINDINGS: RIGHT CAROTID: No significant stenosis is visualized. The waveforms are within normal limits. LEFT CAROTID: No significant stenosis is visualized. The waveforms are within normal limits. VERTEBRAL ARTERIES: Antegrade flow is seen in both vertebral arteries. MISCELLANEOUS: None. CONCLUSION: 1. Minimal carotid plaque without significant carotid flow limiting stenosis. 2. Antegrade vertebral artery flow bilaterally. Jimbo Sanders MD on April 03, 2017 at 8:59 Board Certified Radiologist. This report was verified electronically.
[2017-04-03] MEDS: LISINOPRIL 5 MG TAB PO SCH (12:23)
--- NOTE | 2017-04-03 12:44 | HHI.PR ---
Subjective Remarks Patient is having EEG done Feeling extremely tired I will order 2-D echo and earlier I ordered the EEG Objective Vitals Vital Signs Date Time Temp Pulse Resp B/P (MAP) Pulse Ox O2 Delivery O2 Flow Rate FiO2 04/03/17 11:22 99.0 67 16 190/79 (116) 94 04/03/17 09:18 66 185/79 (114) 04/03/17 08:56 60 04/03/17 08:14 98.2 63 20 192/82 (118) 95 04/03/17 02:56 98.0 63 17 175/73 (107) 94 04/02/17 23:48 98.0 61 17 166/74 (104) 97 180/72 (108) 190/77 (114) 04/02/17 23:04 64 16 165/74 (104) 96 Room Air 04/02/17 22:56 64 16 170/78 (108) 96 Room Air 04/02/17 19:40 70 16 209/91 (130) 98 Room Air 04/02/17 19:38 63 16 191/105 (133) 98 Room Air 04/02/17 18:58 99.1 69 19 185/79 (114) 99 04/02/17 18:17 75 20 99 Room Air 04/02/17 18:17 99.1 75 20 185/79 (114) 99 Room Air 04/02/17 18:11 99.1 84 20 185/79 (114) 99 04/02/17 18:07 98.1 77 18 212/95 (134) 98 Room Air Result Diagram: 04/03/17 0242 04/03/17 0242 Objective Remarks GENERAL: Elderly female lying in bed SKIN: Right periocular ecchymosis. 2 cm repaired laceration above the right eyebrow. HEAD: . Normocephalic. No temporal or scalp tenderness. EYES: Pupils equal round and reactive. Extraocular motions intact. ENT: Nose without bleeding, purulent drainage or septal hematoma. NECK: Trachea midline. No JVD or lymphadenopathy. Supple, nontender, no meningeal signs. CARDIOVASCULAR: Regular rate and rhythm without murmurs, gallops, or rubs. RESPIRATORY: Fair air entry GASTROINTESTINAL: Abdomen soft, non-tender, nondistended. No hepato-splenomegaly , or palpable masses. No guarding. MUSCULOSKELETAL: Extremities without clubbing, cyanosis, or edema. No joint tenderness, effusion, or edema noted. No calf tenderness NEUROLOGICAL: Awake and alert. Zoladex extremity, normal speech A/P Assessment and Plan 81-year-old female with past medical history significant for hypertension, hyperlipidemia, type 2 diabetes mellitus and hypothyroidism presents following her second syncopal event in 1 month. 1. Syncope Carotid ultrasound reviewed within normal limit, CT head showed right very orbital swelling, CT chest minimal atelectasis all reviewed personally by me, cardiac enzyme negative as well, and x-ray showed right fifth phalanx fracture I will order 2-D echo and EEG, PT OT, if all negative possible discharge in a.m. 2. Diabetes mellitus Holding home metformin SSI 3. Hypertension/hyperlipidemia/hypothyroidism Continue home medications TSH pending [facility] Heart healthy diet Electrolytes: monitor and replete prn Heparin Discharge Planning In a.m. the rest of the workup is negative, patient may need rehabilitation Elaine Cardenas MD Apr 03, 2017 12:44
--- NOTE | 2017-04-03 13:04 | EKG ---
Date Performed: 04/03/2017 Time Performed: 01:27:41 PTAGE: 81 years EKG: Sinus rhythm NONSPECIFIC ST & T-WAVE ABNORMALITY BORDERLINE ECG NO PREVIOUS TRACING DOCTOR: Suleman Baker Interpretating Date/Time 04/03/2017 13:02:27
--- NOTE | 2017-04-03 14:55 | MG ---
cc: [facility] Lab No: [id number] Date: 04/03/2017 Age: Sex: F Race: TECHNIQUE 17 channel EEG. DESCRIPTION The background rhythm reveals a symmetrical alpha rhythm frequency 8-9 Hz amplitude 10-20 microvolts. There is some muscle artifact present. There are no lateralizing features seen. During drowsiness there is mild slowing in the theta range. There are no epileptiform discharges. The photic stimulation was performed with normal driving response. INTERPRETATION Normal EEG. MD BARRY Flores/kaitlyn /1:42 PM /2:52 PM
--- NOTE | 2017-04-03 15:06 | ECHRPT ---
Indication: syncope CONCLUSIONS The left ventricular systolic function is low normal with an estimated ejection fraction in the rang e of 50- 55%. Normal left ventricular size. Mild concentric left ventricular hypertrophy. [id number] mitral valve regurgitation. Mild aortic valve regurgitation. There is mild tricuspid valve regurgitation. The estimated pulmonary arterial pressure is 43.9 mmHg. BP: / HR: Rhythm: MEASUREMENTS (Male / Female) Normal Values Technical Quality:Fair 2D ECHO LV Diastolic Diameter PLAX 4.0 cm 4.2 - 5.9 / 3.9 - 5.3 cm LV Systolic Diameter PLAX 3.1 cm IVS Diastolic Thickness 1.6 cm 0.6 - 1.0 / 0.6 - 0.9 cm LVPW Diastolic Thickness 1.1 cm 0.6 - 1.0 / 0.6 - 0.9 cm LV Relative Wall Thickness 0.7 RV Internal Dim ED PLAX 2.5 cm M-MODE Aortic Root Diameter MM 2.8 cm LA Systolic Diameter MM 3.8 cm LA Ao Ratio MM 1.4 AV Cusp Separation MM 2.2 cm DOPPLER AI Peak Velocity 453.0 cm/s AI Peak Gradient 82.1 mmHg AI Pressure Half Time 708.0 ms Mitral E Point Velocity 75.5 cm/s Mitral A Point Velocity 106.0 cm/s Mitral E to A Ratio 0.7 LV E' Lateral Velocity 6.1 cm/s Mitral E to LV E' Lateral Ratio 12.3 LV E' Septal Velocity 4.6 cm/s Mitral E to LV E' Septal Ratio 16.5 TR Peak Velocity 291.3 cm/s TR Peak Gradient 34.0 mmHg Right Atrial Pressure 10.0 mmHg Pulmonary Artery Systolic Pressu 43.9 mmHg Right Ventricular Systolic Press 43.9 mmHg FINDINGS LEFT VENTRICLE The left ventricular systolic function is low normal with an estimated ejection fraction in the rang e of 50- 55%. Normal left ventricular size. Mild concentric left ventricular hypertrophy. RIGHT VENTRICLE Normal right ventricular size and systolic function. LEFT ATRIUM The left atrial size is normal. RIGHT ATRIUM The right atrial size is normal. ATRIAL SEPTUM Normal atrial septal thickness without atrial level shunting by limited color doppler interrogation. AORTA The aortic root and proximal ascending aorta are normal in size on limited imaging. MITRAL VALVE [id number] mitral valve regurgitation. Structurally normal mitral valve. AORTIC VALVE Trileaflet aortic valve. Mild aortic valve regurgitation. AV P1/2 708 TRICUSPID VALVE There is mild tricuspid valve regurgitation. Structurally normal tricuspid valve. The estimated pulmonary arterial pressure is 43.9 mmHg. PULMONARY VALVE No pulmonary valve regurgitation or stenosis. VESSELS The inferior vena cava is normal in size. PERICARDIUM No pericardial effusion. Adryan Hernandez MD, FACC (Electronically Signed) Final Date:03 April 2017 15:05
[2017-04-04 05:06] VITALS: BP 139/65; PULSE 70; RESP 18; TEMP 98.5; O2SAT 98
[2017-04-04 07:05] VITALS: BP 164/71; PULSE 84; RESP 20; TEMP 96.5; O2SAT 96
[2017-04-04 08:00] VITALS: PULSE 80
[2017-04-04] MEDS: LISINOPRIL 5 MG TAB PO SCH (09:37)
[2017-04-04] MEDS: THYROID 60 MG TAB PO SCH (09:38)
[2017-04-04] MEDS: AMIODARONE 200 MG TAB PO SCH (09:38)
[2017-04-04] MEDS: PANTOPRAZOLE SOD 40 MG DELAYED RELEASE TAB PO SCH (09:39)
[2017-04-04] MEDS: FENOFIBRATE 48 MG TAB PO SCH (09:39)
[2017-04-04] MEDS: SERTRALINE HCL 50 MG TAB PO SCH (09:39)
[2017-04-04] MEDS: METOPROLOL TARTRATE 25 MG TAB PO SCH (09:40)
[2017-04-04] MEDS: ASPIRIN 81 MG CHEW TAB CHEW SCH (09:40)
[2017-04-04] MEDS: SODIUM CHLORIDE 0.9% FLUSH 10 ML FLUSH IV FLUSH SCH (09:41)
[2017-04-04] MEDS: ATORVASTATIN 20 MG TAB PO SCH (09:41)
--- NOTE | 2017-04-04 10:52 | HHI.PR ---
Subjective Remarks Patient says she is feeling well. Feels like going home. Denies any chest pain or shortness of breath. She says she has had lightheadedness with standing the past, denies any lightheadedness with standing recently. She does say that during her cycle episode she was standing over the toilet at the gas station, then fell forward into the door, on the floor. She says she lives in [place], will be able to make it home without needing to use a gas station restroom. Objective Vital Signs Date Time Temp Pulse Resp B/P (MAP) Pulse Ox O2 Delivery O2 Flow Rate FiO2 04/04/17 07:05 96.5 84 20 164/71 (102) 96 04/04/17 05:06 98.5 70 18 139/65 (89) 98 04/03/17 23:33 98.1 77 18 153/70 (97) 98 04/03/17 20:05 98.4 73 18 180/78 (112) 97 04/03/17 15:24 96.2 66 18 137/64 (88) 95 04/03/17 12:05 65 04/03/17 11:22 99.0 67 16 190/79 (116) 94 Result Diagram: 04/03/172 04/03/17 0242 Objective Remarks GENERAL: Patient sitting up in chair. Appears comfortable. Alert and oriented 3. SKIN: Warm and dry. HEAD: Normocephalic. EYES: No scleral icterus. No injection or drainage. NECK: Supple, trachea midline. No JVD or lymphadenopathy. CARDIOVASCULAR: Regular rate and rhythm without murmurs, gallops, or rubs. RESPIRATORY: Breath sounds equal bilaterally. No accessory muscle use. GASTROINTESTINAL: Abdomen soft, non-tender, nondistended. MUSCULOSKELETAL: No cyanosis, or edema. BACK: Nontender without obvious deformity. No CVA tenderness. A/P Assessment and Plan 81-year-old female with past medical history significant for hypertension, hyperlipidemia, type 2 diabetes mellitus and hypothyroidism presents following her second syncopal event in 1 month. //Micturition/vasovagal Syncope Carotid ultrasound reviewed within normal limit, CT head showed right very orbital swelling, CT chest minimal atelectasis all reviewed personally by me, cardiac enzyme negative as well, and x-ray showed right fifth phalanx fracture I will order 2-D echo and EEG, PT OT, if all negative possible discharge in a.m. = 2-D only mild aortic regurgitation, EEG negative. This is obvious micturition /vasovagal syncope. Patient was standing over a rests stop restroom trying to urinate when she fell forward into the stall door. counseled patient on safe standing procedures //Diabetes mellitus Holding home metformin SSI //Hypertension/hyperlipidemia/hypothyroidism Continue home medications -TSH 5.28 FEN Heart healthy diet Electrolytes: monitor and replete prn Heparin Discharge Planning Discharge home. Pancho Keen MD Apr 04, 2017 10:52
[2017-04-04] MEDS ORDERED: LISI-519 PO (10:56)
[2017-04-04] MEDS ORDERED: TYLE325T PO (10:56)
[2017-04-04] MEDS ORDERED: METO25TA3 PO (10:56)
--- NOTE | 2017-04-04 11:04 | HHI.DS ---
Discharge Summary Admission Date Apr 02, 2017 at 22:04 Discharge Date: Apr 04, 2017 Admitting Diagnosis syncope, minor CHI, right fifth finger fracture (1) Micturition syncope ICD Code: R55 - Syncope and collapse (2) Syncope ICD Code: R55 - Syncope and collapse Status: Acute (3) Finger fracture, right ICD Code: S62.609A - Fracture of unspecified phalanx of unspecified finger, initial encounter for closed fracture Status: Acute Procedures No invasive procedures. Brief History - From Admission 81-year-old female with past medical history significant for hypertension, hyperlipidemia, hypothyroidism and type 2 diabetes mellitus presents after suffering a syncopal episode. The patient states she was using a public restroom and upon standing lost consciousness and fell. She does not remember the fall. She remembers waking up on the bathroom floor with a laceration to her forehead. The patient had a similar episode approximately one month ago where she fainted after getting off the bus. She lives in [place] and has not had any workup done for her previous syncopal episode. The patient has significant ecchymosis surrounding her right eye and a 2 cm laceration status post repair above her right eyebrow. Imaging done within the emergency department was normal with the exception of a fracture of the proximal phalanx right fifth finger without dislocation. Head CT significant for periorbital soft tissue swelling with no acute intracranial abnormalities. Patient denies any chest pain/shortness of breath. She denies abdominal pain/nausea/vomiting. CBC/BMP: 04/03/17 0242 04/03/17 0242 Significant Findings Laboratory Tests Test 04/02/17 18:45 04/02/17 19:42 04/03/17 02:00 04/03/17 02:42 Neutrophils (%) (Auto) 70.8 % (16.0-70.0) Blood Urea Nitrogen 19 MG/DL (7-18) Random Glucose 213 MG/DL (74-106) Estimat Glomerular Filtration Rate 53 ML/MIN (>89) 67 ML/MIN (>89) Troponin I LESS THAN 0.02 NG/ML LESS THAN 0.02 NG/ML Thyroid Stimulating Hormone 3rd Gen 5.280 uIU/ML (0.358-3.740) Urine Glucose (UA) 150 mg/dL (NEG) Urine Leukocyte Esterase SMALL (NEG) Urine WBC 6 /hpf (0-5) Urine Bacteria RARE /hpf (NONE) Calcium Level 8.3 MG/DL (8.5-10.1) Potassium Level 3.4 MEQ/L (3.5-5.1) Chloride Level 108 MEQ/L (98-107) Test 04/03/17 08:20 04/04/17 10:22 Troponin I LESS THAN 0.02 NG/ML Imaging Last Impressions Carotid Artery Ultrasound 04/03/17 0000 Signed Impressions: Service Date/Time: Monday, April 03, 2017 08:17 - CONCLUSION: 1. Minimal carotid plaque without significant carotid flow limiting stenosis. 2. Antegrade vertebral artery flow bilaterally. Jimbo Sanders MD Pelvis X-Ray 04/02/171824 Signed Impressions: Service Date/Time: March 19:00 - CONCLUSION: Normal examination for a patient of this age. Lawson Michael MD Head CT 04/02/171824 Signed Impressions: Service Date/Time: March 20:10 - CONCLUSION: 1. Right periorbital soft tissue swelling. No acute intracranial abnormalities. Lawson Michael MD Chest X-Ray 04/02/171824 Signed Impressions: Service Date/Time: March 18:57 - CONCLUSION: 1. No active disease. No effusion or pneumothorax. Lawson Michael MD Cervical Spine CT 04/02/171824 Signed Impressions: Service Date/Time: March 20:13 - CONCLUSION: 1. No acute fracture. Moderate to severe degenerative disc disease in the lower cervical spine. Lawson Michael MD Abdomen/Pelvis CT 04/02/171824 Signed Impressions: Service Date/Time: March 20:18 - CONCLUSION: Negative for acute traumatic injury within the abdomen or pelvis. Mild smooth thickening of the bladder wall on the right side of unknown etiology. Lawson Michael MD Wrist X-Ray 04/02/17 0000 Signed Impressions: Service Date/Time: March 19:03 - CONCLUSION: 1. No acute fracture. Moderate osteoarthritis. Lawson Michael MD Maxillofacial CT 04/02/17 0000 Signed Impressions: Service Date/Time: March 20:10 - CONCLUSION: 1. Right periorbital soft tissue swelling. Globes intact. Lawson Michael MD Hand X-Ray 04/02/17 Signed Impressions: Service Date/Time: March 19:02 - CONCLUSION: 1. Fracture of proximal phalanx right fifth finger. No dislocation. 2. Diffuse osteopenia. Moderate osteoarthritis. Lawson Michael MD CT Angiography 04/02/17 Signed Impressions: Service Date/Time: March 20:18 - CONCLUSION: 1. Minimal basilar atelectasis in the lungs. No effusion or pneumothorax. Negative for pulmonary embolus. Lawson Michael MD PE at Discharge GENERAL: Elderly female lying in bed SKIN: Right periocular ecchymosis. 2 cm repaired laceration above the right eyebrow. HEAD: . Normocephalic. No temporal or scalp tenderness. EYES: Pupils equal round and reactive. Extraocular motions intact. ENT: Nose without bleeding, purulent drainage or septal hematoma. NECK: Trachea midline. No JVD or lymphadenopathy. Supple, nontender, no meningeal signs. CARDIOVASCULAR: Regular rate and rhythm without murmurs, gallops, or rubs. RESPIRATORY: Fair air entry GASTROINTESTINAL: Abdomen soft, non-tender, nondistended. No hepato-splenomegaly , or palpable masses. No guarding. MUSCULOSKELETAL: Extremities without clubbing, cyanosis, or edema. No joint tenderness, effusion, or edema noted. No calf tenderness NEUROLOGICAL: Awake and alert. Zoladex extremity, normal speech Pt update on day of discharge Patient says she is feeling well. Feels like going home. Denies any chest pain or shortness of breath. She says she has had lightheadedness with standing the past, denies any lightheadedness with standing recently. She does say that during her cycle episode she was standing over the toilet at the gas station, then fell forward into the door, on the floor. She says she lives in [place], will be able to make it home without needing to use a gas station restroom. Hospital Course Patient underwent multiple imaging modalities as above, with x-ray right hand positive for right proximal phalanx fracture which was splinted. For syncopal workup, patient underwent imaging as above including CT head, carotid ultrasound which only showed some carotid plaque, no stenosis. EEG was also negative. Echocardiogram did show mild aortic insufficiency, otherwise with normal ejection fraction. Blood Pressure medications were adjusted. TSH was checked, 5.28, will need to be rechecked as outpatient. Follow-up with primary care. For problem-based summary from most recent progress note, please see below. 81-year-old female with past medical history significant for hypertension, hyperlipidemia, type 2 diabetes mellitus and hypothyroidism presents following her second syncopal event in 1 month. //Micturition/vasovagal Syncope Carotid ultrasound reviewed within normal limit, CT head showed right very orbital swelling, CT chest minimal atelectasis all reviewed personally by me, cardiac enzyme negative as well, and x-ray showed right fifth phalanx fracture I will order 2-D echo and EEG, PT OT, if all negative possible discharge in a.m. = 2-D only mild aortic regurgitation, EEG negative. This is obvious micturition /vasovagal syncope. Patient was standing over a rests stop restroom trying to urinate when she fell forward into the stall door. counseled patient on safe standing procedures //Diabetes mellitus Holding home metformin SSI //Hypertension/hyperlipidemia/hypothyroidism Continue home medications -TSH 5.28 FEN Heart healthy diet Electrolytes: monitor and replete prn Heparin Pt Condition on Discharge: Good Discharge Disposition: Discharge Home Discharge Time: > 30 minutes Discharge Instructions DIET: Follow Instructions for: Diabetic Diet Activities you can perform: Regular-No Restrictions Activities to Avoid: Prolonged Standing Other Activity Instructions: Please sit up on edge of bed for 30 seconds prior to standing. When standing from toilet or from bed, please nursing staffing coordinator place for 30 seconds prior to walking. Follow up Referrals: PCP Follow-up - 1 Week New Medications: Acetaminophen (Tylenol) 325 Mg Tab 650 MG PO Q6H PRN for PAIN SCALE 1 TO 10 for 7 Days, #56 TAB 0 Refills Lisinopril (Lisinopril) 5 Mg Tab 5 MG PO DAILY for Blood Pressure Management for 30 Days, #30 TAB Metoprolol Tartrate (Metoprolol Tartrate) 25 Mg Tab 12.5 MG PO Q12HR for Blood Pressure Management for 30 Days, TAB Continued Medications: Amiodarone (Amiodarone) 100 Mg Tab 100 MG PO DAILY for Regulate Heart Beat, #30 TAB 0 Refills Aspirin (Aspirin) 81 Mg Chew 81 MG CHEW DAILY, TAB 0 Refills Cholecalciferol (Vitamin D-1000) 1,000 Unit Tab 1000 UNITS PO DAILY for Nutritional Supplement, #1 BOTTLE 0 Refills Fenofibrate (Fenofibrate) 50 Mg Cap 50 MG PO DAILY, #30 CAP 0 Refills Glipizide (Glipizide) 5 Mg Tab 5 MG PO DAILY for Blood Sugar Management, #30 TAB 0 Refills Take 30 minutes before a meal Metformin (Metformin) 500 Mg Tab 500 MG PO BIDPC for Blood Sugar Management, #60 TAB 0 Refills Omeprazole (Omeprazole) 40 Mg Cap 40 MG PO DAILY, #30 CAP 0 Refills Propranolol (Propranolol) 20 Mg Tab 20 MG PO Q12HR, #60 TAB 0 Refills Rosuvastatin (Crestor) 10 Mg Tab 10 MG PO DAILY for Cholesterol Management, #30 TAB 0 Refills Sertraline (Sertraline) 25 Mg Tab 25 MG PO DAILY, #30 TAB 0 Refills Thyroid ([place] Thyroid) 60 Mg Tab 60 MG PO DAILY for Thyroid Supplement, #30 TAB 0 Refills Discontinued Medications: [Metoprolol] () Pancho Keen MD Apr 04, 2017 11:04
--- NOTE | 2017-04-04 23:16 | EKG ---
Date Performed: 04/03/2017 Time Performed: 08:06:04 PTAGE: 81 years EKG: Sinus rhythm NONSPECIFIC ST & T-WAVE ABNORMALITY BORDERLINE ECG Compared to the PREVIOUS TRACING from 04/03/17, no significant change DOCTOR: [place] Interpretating Date/Time 04/04/2017 23:15:39
== END 2017-04-04 11:30 | disposition home or self-care (01) ==
LOC: NEPC 18:03 → NEDA 22:04 → NEPGCP 23:39
PROVIDERS: ADMIT Internal Medicine; ATTEND Internal Medicine
DX: R55 Syncope and collapse (principal); S01.111A Laceration without foreign body of right eyelid and periocular area, initial encounter; S62.646A Nondisplaced fracture of proximal phalanx of right little finger, initial encounter for closed fracture; I10 Essential (primary) hypertension; E11.9 Type 2 diabetes mellitus without complications; Y92.89 Other specified places as the place of occurrence of the external cause; Y93.89 Activity, other specified; E03.9 Hypothyroidism, unspecified; E78.00 Pure hypercholesterolemia, unspecified; I48.91 Unspecified atrial fibrillation; Z79.01 Long term (current) use of anticoagulants; Z23 Encounter for immunization
CPT/HCPCS: 12011; 29125; 70450; 70486; 71010; 71275; 72125; 72170; 73110; 73130; 74177; 80048; 81001; 82550; 83735; 84439; 84443; 84480; 84484; 85025; 85610; 85730; 86850; 86900; 86901; 90471; 90714; 93005; 93306; 93880; 95819; 96372; 96374; 97110; 97116; 97162; 99285; G0378; G8987; G8988; J1644; J2270; Q9967